=== PATIENT | female | born 1980 | race African-American/Black ===

== ENCOUNTER 2016-05-20 03:05 | Emergency (ER) | payer OTHER ==
[2016-05-20] MEDS ORDERED: ONDANSETRON 4 MG VIAL ONE (04:02)
[2016-05-20] MEDS ORDERED: KETOROLAC 30 MG/ML VIAL ONE (04:03)
[2016-05-20] MEDS ORDERED: DICYCLOMINE 10 MG CAP ONE (04:03)
[2016-05-20] MEDS ORDERED: DIPHENOXYLATE/ATROP TAB 2.5 MG TAB ONE (04:03)
[2016-05-20] MEDS ORDERED: SODIUM CHLORIDE 0.9% 1,000 ML ONE (04:04)
== END 2016-05-20 05:18 | disposition home or self-care (01) ==
LOC: ER 03:05
DX: A08.4 Viral intestinal infection, unspecified (principal)
CPT/HCPCS: 36415; 80053; 81003; 83690; 84703; 85025; 96361; 96374; 96375; 99283; J1885; J2405